=== PATIENT | male | born 2000 | race Hispanic/Latino ===

== ENCOUNTER 2021-11-27 17:42 | Emergency (ER) | payer OTHER ==
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
[2021-11-27 21:41] VITALS: TEMP 97.4; O2SAT 100
[2021-11-27 21:42] VITALS: BP 131/84
== END 2021-11-27 21:01 | disposition home or self-care (01) ==
LOC: ER 17:42
DX: R51.9 Headache, unspecified (principal); V49.49XA Driver injured in collision with other motor vehicles in traffic accident, initial encounter
CPT/HCPCS: 70450; 99283

== ENCOUNTER 2023-09-12 13:21 | Observation (INO) | payer SELFPAY ==
[2023-09-12 15:10] LABS: Absolute Lymphocytes (CBC) 2.7 K/uL (0.7-4.9); Hematocrit 40.1 % (39.6-49.0); Lymphocytes % 19.5 % (15.3-44.8); MCV 83.1 fL (80-100); MPV 8.4 fL (7.6-11.3); Platelets 315 thou/uL (152-406); RBC Red Blood Cell Count 4.83 M/uL (4.33-5.43)
[2023-09-12 15:41] LABS: Albumin 3.4 g/dL (3.4-5.0); Bilirubin Total 0.5 mg/dL (0.2-1.0); Potassium 3.8 mEq/L (3.5-5.1); Protein, Total 7.6 g/dL (6.4-8.2)
--- NOTE | 2023-09-12 16:27 | RAD REPORT ---
EXAM DESCRIPTION: US - Extremity Nonvascular Limited - 09/12/2023 3:56 pm CLINICAL HISTORY: Neck mass COMPARISON: None FINDINGS: Patient has a palpable mass posterior right 2.6 x 1.6 x 1.7 centimeter heterogeneous mass is present posterior right neck. It contains mild vascu larity. It contains cystic and solid appearing elements. IMPRESSION: 2.6 centimeter heterogeneous mass posterior right neck has a nonspecific appearance. It may represent an infected or a neoplastic lymph node. A complex cystic lesion is a another considerat ion
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
--- NOTE | 2023-09-12 17:10 | ER ---
Nurse's Notes [facility] Name: Russell Blake Jr Age: 22 yrs Sex: Male : 2000 Arrival Date: 09/12/2023 Time: 13:21 Bed 19 Private MD: Diagnosis: Lymph node mass versus infected lymph node Presentation: 09/12 13:43 Chief complaint: Neck pain x months. Denies numbness/tingling/fever. Coronavirus hb screen: At this time, the client does not indicate any symptoms associated with coronavirus-19. Ebola Screen: No symptoms or risks identified at this time. Initial Sepsis Screen: Does the patient meet any 2 criteria? No. Patient's initial sepsis screen is negative. Does the patient have a suspected source of infection? No. Patient's initial sepsis screen is negative. Risk Assessment: Do you want to hurt yourself or someone else? Patient reports no desire to harm self or others. Onset of symptoms was January 2023. 13:43 Method Of Arrival: Ambulatory hb 13:43 Acuity: JOSLYN 3 hb Historical: - Allergies: 19:18 No Known Allergies; nj1 - PMHx: 19:18 None; nj1 - PSHx: 13:43 Appendectomy; hb - Immunization history:: Adult Immunizations up to date. - Social history:: Smoking status: Patient denies any tobacco usage or history of. - Family history:: not pertinent. Screenin:05 [facility] ED Fall Risk Assessment (Adult) Score/Fall Risk Level 0 - 2 = Low Risk nj1 Oriented to surroundings, Maintained a safe environment, Hourly rounding (assess needs \T\ fall precautionary measures) done. Abuse screen: Denies threats or abuse. Denies injuries from another. Nutritional screening: No deficits noted. Tuberculosis screening: No symptoms or risk factors identified. Assessment: 17:04 General: Appears in no apparent distress. comfortable, Behavior is calm, cooperative, nj1 appropriate for age. Pain: Complains of pain in base of the skull Pain currently is 7 out of 10 on a pain scale. Neuro: Level of Consciousness is awake, alert, obeys commands, Oriented to person, place, time, situation. Cardiovascular: Patient's skin is warm and dry. Respiratory: Airway is patent Respiratory effort is even, unlabored. 18:45 Reassessment: Patient appears in no apparent distress at this time. Patient and/or nj1 family updated on plan of care and expected duration. Pain level reassessed. Patient is alert, oriented x 3, equal unlabored respirations, skin warm/dry/pink. Vital Signs: 13:43 BP 159 / 71; Pulse 102; Resp 18; Temp 98.5; Pulse Ox 98% on R/A; Weight 181.44 kg; hb Height 5 ft. 7 in. ; Pain 7/10; 17:04 BP 170 / 91; Pulse 96; Resp 19; Pulse Ox 100% ; Pain 7/10; nj1 18:45 BP 166 / 93; Pulse 93; Resp 18; Temp 98.8(O); Pulse Ox 97% on R/A; Pain 7/10; nj1 13:43 Body Mass Index 62.65 (181.44 kg, 170.18 cm) hb 13:43 Pain Scale: Adult hb 17:04 Pain Scale: Adult nj1 18:45 Pain Scale: Adult [facility] ED Course: 13:24 Patient arrived in ED. im 13:31 Evaristo Haq MD is Attending Physician. rt 13:43 Arm band placed on. hb 13:45 Triage completed. hb 14:30 Maribel Garza, ELIF is Primary Nurse. nj1 15:00 CMP Sent. nj1 15:00 CBC with Diff Sent. nj1 15:01 Inserted saline lock: 22 gauge in right forearm, using aseptic technique. Blood bc6 collected. 15:58 Extremity Nonvascular Limited In Process Unspecified. EDMS 17:05 Patient has correct armband on for positive identification. Bed in low position. Call nj1 light in reach. Adult w/ patient. Provided Education on: call light, fall precautions. 17:09 Kieran Butt MD is Hospitalizing Provider. rt 17:41 Inserted saline lock: 22 gauge in right forearm, using aseptic technique. Blood sm8 collected. 20:39 No provider procedures requiring assistance completed. Patient admitted, IV remains in pf1 place. Administered Medications: 18:45 Drug: vancoMYCIN IVPB 1 grams IVPB once over 2 hrs Route: IVPB; Infused Over: 2 hrs; nj Site: right forearm; Medication: 20:39 VIS not applicable for this client. pf1 Outcome: 17:09 Decision to Hospitalize by Provider. rt 20:16 Admitted to Med/surg accompanied by tech, via wheelchair, room 217, Report called to pf1 ELIF Goins 20:16 Condition: stable 20:16 Instructed on the need for admit, Demonstrated understanding of instructions, 20:39 Patient left the ED. pf1 Signatures: Dispatcher [employer] EDMarissa Bowden RN RN Evaristo Haq MD MD rt Carla Goodrich RN RN pf1 Trisha Feldman 6 Maribel Garza RN RN hi1 Cecile Benavidez Scarlett 8 Corrections: (The following items were deleted from the chart) 46 13:43 Chief complaint: Neck pain x 2 weeks. Denies numbness/tingling/fever. hb hb 13:46 13:43 Onset of symptoms was August 2023 hb
--- NOTE | 2023-09-12 17:38 | P.HP ---
Certification for Inpatient Patient admitted to: Observation With expected LOS: <2 Midnights Patient will require the following post-hospital care: None Practitioner: I am a practitioner with admitting privileges, knowledge of patient current condition, hospital course, and medical plan of care. Services: Services provided to patient in accordance with Admission requirements found in Title 42 Section 412.3 of the Code of Federal Regulations Patient History Date of Service: 09/12/23 Reason for admission: Neck mass History of Present Illness: 22-year-old male who is otherwise healthy presents to the emergency department chief complaint of right posterior neck mass. He first noticed the mass in February, he remained stable until about a week ago and began enlarging and becoming tender/painful. He was evaluated in the emergency department his labs were significant for white blood cell 13.6 glucose of 250. Unable to obtain CT given body habitus/weight limits for CT machine. Ultrasound was obtained Which revealed a 2.6 cm heterogenous mass posterior right neck has a nonspecific appearance. It may represent an infected or neoplastic lymph node. A complex cystic lesion is another consideration. ED physician spoke with general surgery who will evaluate patient, perhaps perform a biopsy. - Past Medical/Surgical History -: None -: Appendectomy Psychosocial/ Personal History: Lives at home with his , works as a data communications technician - Family History Mother -: Diabetes - Social History Smoking Status: Never smoker Alcohol use: No CD- Drugs: No Caffeine use: Yes Place of Residence: Home Review of Systems 10-point ROS is otherwise unremarkable Integumentary: Other (Soft tissue mass, neck tenderness posterior right neck) Physical Examination - Physical Exam General: Alert, In no apparent distress, Oriented x3, Obese HEENT: Atraumatic, PERRLA, Mucous membr. moist/pink, EOMI, Sclerae nonicteric Neck: Supple, 2+ carotid pulse no bruit, No LAD, Without JVD or thyroid abnormality Respiratory: Clear to auscultation bilaterally, Normal air movement Cardiovascular: Regular rate/rhythm, Normal S1 S2 Gastrointestinal: Normal bowel sounds, No tenderness Musculoskeletal: No tenderness Integumentary: Other (Right posterior lateral neck mass with erythema, tenderness) Neurological: Normal gait, Normal speech, Normal strength at 5/5 x4 extr, Normal tone, Normal affect Lymphatics: No axilla or inguinal lymphadenopathy - Studies Laboratory Data (last 24 hrs) 09/12/23 09/12/23 14:58 14:58 WBC 13.60 H Hgb 13.2 L Hct 40.1 Plt Count 315 Sodium 136 Potassium 3.8 BUN 14 Creatinine 0.85 Glucose 253 H Total Bilirubin 0.5 AST 13 L ALT 30 Alkaline Phosphatase 83 Assessment and Plan - Plan Assessment: 2.6 cm posterior lateral neck mass Hyperglycemia Plan: 2.6 cm posterior lateral neck mass Continue antibiotics in case of infectious component N.p.o. after midnight, general surgery consult anticipation of possible biopsy/potentially I&D Blood cultures and lactate ordered and pending no confirmed infection at this time. Hyperglycemia No known history of diabetes, blood sugar is elevated at around 250 Obtain A1c, mild sliding scale insulin DVT PPX: SCD Code status: Full Discharge Plan: Home Plan to discharge in: 24 Hours - Advance Directives Does patient have a Living Will: No Does patient have a Durable POA for Healthcare: No - Code Status/Comfort Care Code Status Assessed: Yes (Full code) Critical Care: No Time Spent Managing Pts Care (In Minutes): 55
[2023-09-12] MEDS ORDERED: NA CHLORIDE 0.9% 250 ML ONE ×3 (18:40→22:45)
[2023-09-12] MEDS ORDERED: VANCOMYCIN 1 GM/VIAL ONE ×2 (18:40→18:51)
[2023-09-12 21:29] VITALS: BMI 67.2
[2023-09-12] MEDS ORDERED: D50W 25 GM/50 ML SYRINGE IV PRN (21:30)
[2023-09-12] MEDS ORDERED: ONDANSETRON 4 MG/2 ML VIAL IV PRN (21:30)
[2023-09-12] MEDS: INSULIN REGULAR (HUMAN) 100 UNIT/ML SQ SCH (21:30)
[2023-09-12] MEDS ORDERED: ACETAMINOPHEN 500 MG TAB PO PRN (21:30)
[2023-09-12] MEDS ORDERED: GLUCAGON 1 MG/VIAL IM PRN (21:30)
[2023-09-12] MEDS ORDERED: D10W 125 ML IV PRN (21:39)
[2023-09-12] MEDS ORDERED: VANCOMYCIN 1 GM in NA CHLORIDE 0.9% 250 ML IVPB ONE (22:00)
[2023-09-12] MEDS: NA CHLORIDE 0.9% 1,000 ML IV SCH (22:11)
[2023-09-12] MEDS: HYDROCODONE/APAP 7.5/325 MG TAB PO PRN (22:36)
[2023-09-13 04:51] LABS: Absolute Lymphocytes (CBC) 3.7 K/uL (0.7-4.9); Hematocrit 38.9 % (39.6-49.0); Lymphocytes % 29.2 % (15.3-44.8); MCV 82.7 fL (80-100); MPV 8.5 fL (7.6-11.3); Platelets 309 thou/uL (152-406)
[2023-09-13 05:10] LABS: Potassium 3.8 mEq/L (3.5-5.1)
[2023-09-13] MEDS ORDERED: KCL 20 MEQ/100 mL IVPB 20 MEQ/100 ML BAG IV SCH (06:00)
[2023-09-13] MEDS: INSULIN REGULAR (HUMAN) 100 UNIT/ML SQ SCH ×3 (07:30→16:30)
[2023-09-13] MEDS: HYDROCODONE/APAP 7.5/325 MG TAB PO PRN ×2 (08:20→17:13)
[2023-09-13] MEDS: NA CHLORIDE 0.9% 1,000 ML IV SCH (08:21)
[2023-09-13] MEDS ORDERED: VANCOMYCIN 2 GM in NA CHLORIDE 0.9% 500 ML IVPB SCH (09:00)
[2023-09-13] MEDS: VANCOMYCIN 1 GM in NA CHLORIDE 0.9% 250 ML IV SCH ×2 (09:00→17:13)
--- NOTE | 2023-09-13 09:19 | RAD REPORT ---
EXAM DESCRIPTION: RAD - Chest Single View - 09/13/2023 9:12 am CLINICAL HISTORY: Eval for lymphadenopathy COMPARISON: Extremity Nonvascular Limited dated 09/12/2023 FINDINGS: Lines: None. Lungs: Low lung volumes accentuates the pulmonary vasculature. Pleural: No significant pleural effusions or pneumothorax. Cardiac: Cardiomegaly. Mediastinum: Within normal limits. Bones: No acute fractures. Other: None IMPRESSION: No acute cardiopulmonary disease.
[2023-09-13] MEDS ORDERED: INFLUENZA VACCINE (for 6+ mo) 0.5 ML DOSE IMVAC ONE (11:00)
[2023-09-13] MEDS ORDERED: LIDOCAINE HCL/EPINEPHRINE 20 ML MDV ONE (15:48)
--- NOTE | 2023-09-13 15:49 | P.PN ---
Subjective Date of Service: 09/13/23 Chief Complaint: Neck mass Subjective: No new changes Review of Systems 10-point ROS is otherwise unremarkable Musculoskeletal: Other (Neck pain) Physical Examination - Vital Signs Temperature: 97.3 F Blood Pressure: 108/53 Pulse: 80 Respirations: 16 Pulse Ox (%): 96 - Physical Exam General: Alert, In no apparent distress, Oriented x3 HEENT: Atraumatic, PERRLA, EOMI Neck: Supple, JVD not distended Respiratory: Clear to auscultation bilaterally, Normal air movement Cardiovascular: Regular rate/rhythm, Normal S1 S2 Gastrointestinal: Normal bowel sounds, No tenderness Musculoskeletal: No tenderness Integumentary: Other (Palpable mass right posterior neck with erythema overlying) Neurological: Normal speech, Normal tone, Normal affect - Studies Medications List Reviewed: Yes Assessment And Plan - Plan Assessment: 2.6 cm posterior lateral neck mass Hyperglycemia Plan: 2.6 cm posterior lateral neck mass Continue antibiotics in case of infectious component Going to OR today for evaluation/possible I&D Blood cultures pending, lactate WNL CRP mildly elevated Hyperglycemia A1c 7, discussed findings with patient SSI, will need follow up with PCP at [place] DVT PPX: SCD Code status: Full Discharge Plan: Home Plan to discharge in: 24 Hours - Code Status/Comfort Care Code Status Assessed: Yes (Full) Critical Care: No Time Spent Managing PTS Care (In Minutes): 20
[2023-09-13] MEDS ORDERED: FENTANYL CITR 100 MCG/2 ML ONE (16:05)
[2023-09-13] MEDS ORDERED: MIDAZOLAM HCL 2 MG/2 ML INJ ONE (16:05)
[2023-09-13] MEDS ORDERED: propofoL 200 MG/20 ML VIAL IV ONE (16:05)
--- NOTE | 2023-09-13 16:07 | P.CNS ---
Date of Consult: 09/13/23 PC: I was asked see this patient in regards to a mass on the right side of his neck HPC: Patient presented the emergency room with pain and discomfort in the right side of his neck as well as feeling a lump. It was worked up and was found to have a cystic mass. PSHx: Negative PMHx: Morbid obesity, borderline diabetes, sleep apnea Social Hx: No known allergies Sys R: No cough, wheeze, shortness of breath. No chest pain or palpitations. Denies any urinary complaints O/E: Awake alert vital signs are stable HEENT: On the right side of the neck posteriorly right along the skin crease there is a mass that measures about 1-1/2 cm in size. No drainage at the moment. Chest: Negative Abd: Morbidly obese Anderson: Intact Impression: Mass right-sided neck possible abscess Plan: I will taken to the operating room for incision, drainage, sharp debridement of this mass on the right side the neck. The risks of this procedur e have been discussed. The possibility of bleeding, infection, need for further surgeries and procedures was described. He understands and wants us to proceed.
[2023-09-13 16:35] VITALS: TEMP 97.6
[2023-09-13 16:45] VITALS: BP 125/60; O2SAT 96
--- NOTE | 2023-09-13 17:36 | P.DS ---
Admission Date: 09/12/23 Discharge Date: 09/13/23 Disposition: ROUTINE DISCHARGE Discharge Condition: GOOD Reason for Admission: Neck mass Consultations: General surgery Procedures: Incision and drainage of infected sebaceous cyst 09/13/2023 Brief History of Present Illness: 22-year-old male who is otherwise healthy presents to the emergency department chief complaint of right posterior neck mass. He first noticed the mass in February, he remained stable until about a week ago and began enlarging and becoming tender/painful. He was evaluated in the emergency department his labs were significant for white blood cell 13.6 glucose of 250. Unable to obtain CT given body habitus/weight limits for CT machine. Ultrasound was obtained Which revealed a 2.6 cm heterogenous mass posterior right neck has a nonspecific appearance. It may represent an infected or neoplastic lymph node. A complex cystic lesion is another consideration. ED physician spoke with general surgery who will evaluate patient, perhaps perform a biopsy. Hospital Course: Patient was admitted to the hospital for right posterior neck mass. During his hospitalization he was found to be hyperglycemic, an A1c was checked and it was 7. On 09/05/2023 he had an incision and drainage performed by general surgery and it was found that he had an infected sebaceous cyst present to the posterior right neck. He was cleared for discharge from general surgery to follow-up in the office. In regards to the elevated A1c level and hyperglycemia he was presc ribed metformin 500 mg p.o. twice daily and instructed to follow-up with his primary care doctor in 1 week. Also prescribed Bactrim DS 1 tablet by mouth twice daily for infected sebaceous cyst. Vital Signs/Physical Exam: Temp Pulse Resp BP Pulse Ox 97.6 F 80 20 125/60 96 09/13/23 16:42 09/13/23 16:42 09/13/23 16:42 09/13/23 16:42 09/13/23 15:49 General: Alert, In no apparent distress, Oriented x3, Obese HEENT: Atraumatic, PERRLA, EOMI Neck: Supple, JVD not distended Respiratory: Clear to auscultation bilaterally, Normal air movement Cardiovascular: Regular rate/rhythm, Normal S1 S2 Gastrointestinal: Normal bowel sounds, No tenderness Musculoskeletal: No tenderness Integumentary: No rashes Neurological: Normal speech, Normal tone, Normal affect Laboratory Data at Discharge: WBC 12.70 thou/uL (4.3-10.9) H 09/13/23 04:15 Hgb 12.7 g/dL (13.6-17.9) L 09/13/23 04:15 Hct 38.9 % (39.6-49.0) L 09/13/23 04:15 Plt Count 309 thou/uL (152-406) 09/13/23 04:15 Sodium 136 mEq/L (136-145) 09/13/23 04:15 Potassium 3.8 mEq/L (3.5-5.1) 09/13/23 04:15 BUN 13 mg/dL (7-18) 09/13/23 04:15 Creatinine 0.75 mg/dL (0.70-1.30) 09/13/23 04:15 Glucose 162 mg/dL (74-106) H 09/13/23 04:15 Total Bilirubin 0.5 mg/dL (0.2-1.0) 09/12/23 14:58 AST 13 U/L (15-37) L 09/12/23 14:58 ALT 30 U/L (16-61) 09/12/23 14:58 Alkaline Phosphatase 83 U/L (45-117) 09/12/23 14:58 Physician Discharge Instructions: PROBLEM: (list out Acute Problems for the Current visit) GOAL: Clear understanding of disease process INSTRUCTIONS: PT TO CALL DR. BASHIR OFFICE FRIDAY FOR APPOINTMENT ON Friday09/17/23 PT CAN SHOWER AND WASH WITH SOAP AND WATER AND COVER WITH DRY DRESSING. Diet: TOLERATED Patient was admitted to the hospital for right posterior neck mass. During his hospitalization he was found to be hyperglycemic, an A1c was checked and it was 7. On 09/05/2023 he had an incision and drainage performed by general surgery and it was found that he had an infected sebaceous cyst present to the posterior right neck. He was cleared for discharge from general surgery to follow-up in the office. In regards to the elevated A1c level and hyperglycemia he was prescribed metformin 500 mg p.o. twice daily and instructed to follow-up with his primary care doctor in 1 week. Also prescribed Bactrim DS 1 tablet by mouth twice daily for infected sebaceous cyst. Diet: ADA Activity: Ad ignacio Followup: NONE,NONE [Primary Care Provider] - Time spent managing pt's care (in minutes): 30
== END 2023-09-13 19:09 | disposition home or self-care (01) ==
LOC: ER 13:21 → ERHOLD 17:28 → 2ND 19:17
PROVIDERS: ADMIT Hospitalist; ATTEND Hospitalist
PROC: 0H94XZX Drainage of Neck Skin, External Approach, Diagnostic (ICD-10-PCS; principal; 2023-09-13 15:15)
DX: L72.3 Sebaceous cyst (principal); R73.9 Hyperglycemia, unspecified
CPT/HCPCS: 36415; 71045; 76882; 80048; 80053; 82947; 83036; 83605; 85025; 86140; 87040; 96374; 99285; G0378; J2250; J2704; J3010; J3480; J7030; J7040; J7050

== ENCOUNTER → 2023-11-30 | Emergency (ER) | payer SELFPAY ==
[~2023-11-30] MED LIST: ASPIRIN 81 MG CHEWABLE TABLET ONE; AZITHROMYCIN 250 MG TAB ONE; NA CHLORIDE 0.9% 1,000 ML ONE
--- NOTE | 2023-11-30 15:33 | RAD REPORT ---
EXAM DESCRIPTION: RAD - Chest Single View - 11/30/2023 3:25 pm CLINICAL HISTORY: DYSPNEA Chest pain. COMPARISON: <Comparisons> FINDINGS: Portable technique limits examination quality. The lungs are grossly clear. The heart is normal in size. No displaced fractures. IMPRESSION: No acute intrathoracic process suspected.
[2023-11-30 15:55] LABS: Absolute Lymphocytes (CBC) 3.1 K/uL (0.7-4.9); Hematocrit 42.1 % (39.6-49.0); Lymphocytes % 25.2 % (15.3-44.8); MCV 81.6 fL (80-100); MPV 8.1 fL (7.6-11.3); Platelets 349 thou/uL (152-406); RBC Red Blood Cell Count 5.15 M/uL (4.33-5.43)
[2023-11-30 15:55] LABS: Urine Bilirubin NEGATIVE (Negative); Urine Blood Negative (Negative); Urine Clarity Clear (Clear); Urine Color Light-Yellow (Yellow); Urine Glucose NEGATIVE (Negative); Urine Protein NEGATIVE (Negative); Urine Urobilinogen Normal (Normal)
[2023-11-30 16:01] LABS: SARS-CoV-2 Antigen Rapid Res Negative (Negative)
[2023-11-30 16:04] LABS: Protime INR 1.21
[2023-11-30 16:16] LABS: Albumin 3.4 g/dL (3.4-5.0); Bilirubin Direct 0.1 mg/dL (0-0.2); Bilirubin Indirect, Calculated 0.3 mg/dL (0.2-0.8); Bilirubin Total 0.4 mg/dL (0.2-1.0); Potassium 3.5 mEq/L (3.5-5.1); Protein, Total 7.9 g/dL (6.4-8.2); Troponin High Sensitivity 5.3 pg/mL (<58.9)
--- NOTE | 2023-11-30 16:35 | RAD REPORT ---
EXAM DESCRIPTION: US - Extrem Venous W Compress Og - 11/30/2023 4:30 pm CLINICAL HISTORY: PAIN Bilateral leg edema and swelling. COMPARISON: <Comparisons> TECHNIQUE: Real-time sonographic interrogation of the left and right lower extremity deep venous sys tems was performed. FINDINGS: Normal compressibility, flow augmentation, phasic flow and spontaneous flow is identified in both the left and right lower extremity deep venous systems. IMPRESSION: No sonographic evidence of left or right lower extremity deep venous thrombosis.
--- NOTE | 2023-11-30 17:35 | ER ---
Nurse's Notes [facility] Name: Russell Blake Jr Age: 22 yrs Sex: Male : 2000 Arrival Date: 11/30/2023 Time: 14:54 Bed 4 Private MD: Diagnosis: Dyspnea;Acute upper respiratory infection, unspecified;Obesity, unspecified;Obesity due to excess calories;Morbid (severe) obesity with alveolar hypoventilation Presentation: 11/30 15:04 Chief complaint: Patient states: Sore throat and shortness of breath onset last week. cm10 Coronavirus screen: Vaccine status: Patient reports receiving the 2nd dose of the covid vaccine. Client denies travel out of the [place] in the last 14 days. Ebola Screen: Patient denies travel to an Ebola-affected area in the 21 days before illness onset. No symptoms or risks identified at this time. Initial Sepsis Screen: Does the patient meet any 2 criteria? No. Patient's initial sepsis screen is negative. Does the patient have a suspected source of infection? No. Patient's initial sepsis screen is negative. Risk Assessment: Do you want to hurt yourself or someone else? Patient reports no desire to harm self or others. Onset of symptoms was November 30, 2023. 15:04 Method Of Arrival: Ambulatory cm10 15:04 Acuity: JOSLYN 3 cm10 Triage Assessment: 15:06 General: Appears in no apparent distress. comfortable, Behavior is calm, cooperative. cm10 Pain: Complains of pain in Throat. EENT: Throat is reddened Reports pain in Throat. Neuro: No deficits noted. Level of Consciousness is awake, alert, Oriented to person, place, time, situation. Cardiovascular: No deficits noted. Reports shortness of breath, Denies chest pain, Patient's skin is warm and dry. Respiratory: Reports shortness of breath since Last week Airway is patent Respiratory effort is even, unlabored, Respiratory pattern is regular, symmetrical, Onset: The symptoms/episode began/occurred 1 week ago, the patient has mild shortness of breath. GI: No deficits noted. No signs and/or symptoms were reported involving the gastrointestinal system. : No deficits noted. No signs and/or symptoms were reported regarding the genitourinary system. Derm: No deficits noted. No signs and/or symptoms reported regarding the dermatologic system. Skin is intact, Skin is pink, warm \T\ dry. Musculoskeletal: No deficits noted. Range of motion: intact in all extremities. Historical: - Allergies: 15:06 No Known Allergies; cm10 - PMHx: 15:06 Diabetes mellitus; cm10 - PSHx: 15:06 Appendectomy; cm10 - Immunization history:: Adult Immunizations up to date. - Social history:: Smoking status: Patient denies any tobacco usage or history of. Screenin:42 [facility] ED Fall Risk Assessment (Adult) History of falling in the last 3 months, ld1 including since admission No falls in past 3 months (0 pts). Abuse screen: Denies threats or abuse. Denies injuries from another. Nutritional screening: No deficits noted. Tuberculosis screening: No symptoms or risk factors identified. Assessment: 15:42 General: Appears in no apparent distress. comfortable, Behavior is calm, cooperative, ld1 appropriate for age. Pain: Denies pain. Neuro: Level of Consciousness is awake, alert, obeys commands, Oriented to person, place, time, situation. Cardiovascular: Capillary refill < 3 seconds Patient's skin is warm and dry. Rhythm is sinus rhythm. Respiratory: Reports shortness of breath at rest on exertion Airway is patent Respiratory effort is even, unlabored, Breath sounds are clear bilaterally. GI: Abdomen is round obese. : No signs and/or symptoms were reported regarding the genitourinary system. EENT: No signs and/or symptoms were reported regarding the EENT system. Derm: No signs and/or symptoms reported regarding the dermatologic system. Musculoskeletal: No signs and/or symptoms reported regarding the musculoskeletal system. 17:33 Reassessment: No changes from previously documented assessment. Patient and/or family mb9 updated on plan of care and expected duration. Pain level reassessed. Patient is alert, oriented x 3, equal unlabored respirations, skin warm/dry/pink. Vital Signs: 15:04 BP 124 / 75; Pulse 85; Resp 18; Temp 97.3(TE); Pulse Ox 100% ; Weight 188.24 kg; Height cm10 5 ft. 8 in. ; Pain 5/10; 15:42 BP 123 / 71; Pulse 83; Resp 19; Pulse Ox 99% on R/A; ld1 16:53 BP 135 / 80; Pulse 78; Resp 18; Pulse Ox 99% on R/A; ld1 15:04 Body Mass Index 63.10 (188.24 kg, 172.72 cm) cm10 15:04 Pain Scale: Adult cm10 ED Course: 14:58 Patient arrived in ED. ts1 15:06 Triage completed. cm10 15:07 Arm band placed on Patient placed in an exam room, on a stretcher. cm10 15:12 Compa Garza MD is Attending Physician. yogi 15:26 Coco Rosa RN is Primary Nurse. ld1 15:27 XRAY Chest (1 view) In Process Unspecified. EDMS 15:41 Flu Sent. ld1 15:41 SARS RAPID Sent. ld1 15:41 Urinalysis w/ reflexes Sent. ld1 15:41 Lipase Sent. ld1 15:42 Patient has correct armband on for positive identification. Placed in gown. Bed in low ld1 position. Call light in reach. Side rails up X2. library monitor on. Pulse ox on. NIBP on. Door closed. Noise minimized. Warm blanket given. 15:42 No provider procedures requiring assistance completed. ld1 15:42 Missed attempt(s): 22 gauge in right hand. Bleeding controlled, band aid applied, mb4 catheter tip intact. 15:50 Initial lab(s) drawn, by me, sent to lab. Inserted saline lock: 22 gauge in left hand, mb4 using aseptic technique. Blood collected. 16:32 US Extremity Venous W Compression Og In Process Unspecified. EDMS 17:35 Vicente Walker MD is Referral Physician. yogi 17:41 IV discontinued, intact, bleeding controlled, No redness/swelling at site. Pressure mb9 dressing applied. Administered Medications: 15:51 Drug: NS 0.9% IV 1000 ml IV at 75 ml/hr continuous Route: IV; Rate: 75 ml/hr; Site: ld1 left forearm; 16:51 Drug: Aspirin PO Chewable Tablet 324 mg PO once; 81 mg tablets x 4 Route: PO; mb9 17:33 Follow up: Response: No adverse reaction mb9 16:51 Drug: AZITHromycin PO 500 mg PO once Route: PO; mb9 17:33 Follow up: Response: No adverse reaction mb9 Medication: 15:42 VIS not applicable for this client. ld1 Outcome: 17:35 Discharge ordered by . yogi 17:41 Discharged to home ambulatory, mb9 17:41 Condition: stable 17:41 Discharge instructions given to patient, Instructed on discharge instructions, follow up and referral plans. Demonstrated understanding of instructions, follow-up care, medications, Prescriptions given X 2, 17:41 Patient left the ED. mb9 Signatures: Dispatcher [employer] EDGA Compa Garza MD MD cha Baxter, Mackenzie mb4 Coco Rosa RN RN ld1 Lora Whittington RN RN mb9 Charlene Gibson PAS PAS ts1 Liliya Zayas RN RN cm10
--- NOTE | 2023-11-30 17:35 | EDPHYS ---
Physician Documentation [facility] Name: Russell Blake Jr Age: 22 yrs Sex: Male : 2000 Arrival Date: 11/30/2023 Time: 14:54 Bed 4 Private MD: ED Physician Compa Garza HPI: 11/30 16:46 This 22 yrs old Male presents to ER via Ambulatory with complaints of yogi Shortness Of Breath. 16:46 The patient has shortness of breath at rest, with light activity. Onset: The yogi symptoms/episode began/occurred 3 day(s) ago. Duration: The symptoms are intermittent, with no pattern. The patient's shortness of breath is aggravated by coughing. Associated signs and symptoms: Pertinent positives: non-productive cough, fever. Severity of symptoms: At their worst the symptoms were mild in the emergency department the symptoms are unchanged. The patient has experienced similar episodes in the past, a few times. Historical: - Allergies: 15:06 No Known Allergies; cm10 - PMHx: 15:06 Diabetes mellitus; cm10 - PSHx: 15:06 Appendectomy; cm10 - Immunization history:: Adult Immunizations up to date. - Social history:: Smoking status: Patient denies any tobacco usage or history of. ROS: 16:50 Constitutional: Negative for fever, chills, and weight loss, Eyes: Negative for injury, yogi pain, redness, and discharge, ENT: Negative for injury, pain, and discharge, Neck: Negative for injury, pain, and swelling, Cardiovascular: Negative for chest pain, palpitations, and edema, Abdomen/GI: Negative for abdominal pain, nausea, vomiting, diarrhea, and constipation, Back: Negative for injury and pain, : Negative for injury, bleeding, discharge, and swelling, MS/Extremity: Negative for injury and deformity, Skin: Negative for injury, rash, and discoloration, Neuro: Negative for headache, weakness, numbness, tingling, and seizure, Psych: Negative for depression, anxiety, suicide ideation, homicidal ideation, and hallucinations, Allergy/Immunology: Negative for hives, rash, and allergies, Endocrine: Negative for neck swelling, polydipsia, polyuria, polyphagia, and marked weight changes, Hematologic/Lymphatic: Negative for swollen nodes, abnormal bleeding, and unusual bruising, 16:50 Respiratory: Positive for cough, with no reported sputum, Exam: 16:50 Constitutional: This is a well developed, well nourished patient who is awake, alert, yogi and in no acute distress. Head/Face: Normocephalic, atraumatic. Eyes: Pupils equal round and reactive to light, extra-ocular motions intact. Lids and lashes normal. Conjunctiva and sclera are non-icteric and not injected. Cornea within normal limits. Periorbital areas with no swelling, redness, or edema. ENT: Nares patent. No nasal discharge, no septal abnormalities noted. Tympanic membranes are normal and external auditory canals are clear. Oropharynx with no redness, swelling, or masses, exudates, or evidence of obstruction, uvula midline. Mucous membranes moist. Neck: Trachea midline, no thyromegaly or masses palpated, and no cervical lymphadenopathy. Supple, full range of motion without nuchal rigidity, or vertebral point tenderness. No Meningismus. Chest/axilla: Normal chest wall appearance and motion. Nontender with no deformity. No lesions are appreciated. Cardiovascular: Regular rate and rhythm with a normal S1 and S2. No gallops, murmurs, or rubs. Normal PMI, no JVD. No pulse deficits. Respiratory: Lungs have equal breath sounds bilaterally, clear to auscultation and percussion. No rales, rhonchi or wheezes noted. No increased work of breathing, no retractions or nasal flaring. Abdomen/GI: Soft, non-tender, with normal bowel sounds. No distension or tympany. No guarding or rebound. No evidence of tenderness throughout. Back: No spinal tenderness. No costovertebral tenderness. Full range of motion. Male : Normal genitalia with no discharge or lesions. Skin: Warm, dry with normal turgor. Normal color with no rashes, no lesions, and no evidence of cellulitis. MS/ Extremity: Pulses equal, no cyanosis. Neurovascular intact. Full, normal range of motion. Neuro: Awake and alert, GCS 15, oriented to person, place, time, and situation. Cranial nerves II-XII grossly intact. Motor strength 5/5 in all extremities. Sensory grossly intact. Cerebellar exam normal. Normal gait. Psych: Awake, alert, with orientation to person, place and time. Behavior, mood, and affect are within normal limits. 16:50 ECG was reviewed by the Attending Physician. Vital Signs: 15:04 BP 124 / 75; Pulse 85; Resp 18; Temp 97.3(TE); Pulse Ox 100% ; Weight 188.24 kg; Height cm10 5 ft. 8 in. ; Pain 5/10; 15:42 BP 123 / 71; Pulse 83; Resp 19; Pulse Ox 99% on R/A; ld1 16:53 BP 135 / 80; Pulse 78; Resp 18; Pulse Ox 99% on R/A; ld1 15:04 Body Mass Index 63.10 (188.24 kg, 172.72 cm) cm10 15:04 Pain Scale: Adult cm10 MDM: 15:12 Patient medically screened. [facility] 16:51 Differential diagnosis: asthma, Bronchitis CHF exacerbation, viral Infection, bacterial yogi infection, pneumonia Myocardial Infarction pneumonia, pulmonary edema, Pulmonary Embolism reactive airway disease, Unstable Angina. Antibiotic administration: The patient is discharged and will get outpatient antibiotics, Zithromax. Differential Diagnosis: Obstructed Airway Bronchitis Influenza Upper Respiratory Infection Sinusitis Pharyngitis Asthma Exacerbation Viral Syndrome Pneumonia. Immunization status:. Data reviewed: vital signs, nurses notes, lab test result(s), EKG, radiologic studies, plain films. Consideration of Admission/Observation Escalation of care including admission/observation considered. Independent interpretation of the following test(s) in the Emergency Department EKG: See my EKG interpretation above. 11/30 15:14 Order name: Basic Metabolic Panel; Complete Time: 16:43 [facility] 11/30 15:14 Order name: CBC with Diff 11/30 15:14 Order name: LFT's; Complete Time: 16:43 [facility] 11/30 15:14 Order name: Magnesium; Complete Time: 16:43 [facility] 11/30 15:14 Order name: NT PRO-BNP; Complete Time: 16:43 [facility] 11/30 15:14 Order name: PT-INR; Complete Time: 16:43 [facility] 11/30 15:14 Order name: Troponin HS; Complete Time: 16:43 [facility] 11/30 15:14 Order name: Lipase; Complete Time: 16:43 [facility] 11/30 15:14 Order name: Urinalysis w/ reflexes; Complete Time: 16:43 [facility] 11/30 15:14 Order name: SARS RAPID; Complete Time: 16:43 [facility] 11/30 15:14 Order name: Flu; Complete Time: 16:43 yogi 11/30 15:47 Order name: D-Dimer; Complete Time: 16:58 [facility] 11/30 15:14 Order name: XRAY Chest (1 view); Complete Time: 16:43 yogi 11/30 15:47 Order name: US Extremity Venous W Compression Og; Complete Time: 16:43 yogi 11/30 15:14 Order name: EKG; Complete Time: 15:14 [facility] 11/30 15:14 Order name: Cardiac monitoring; Complete Time: 15:41 yogi 11/30 15:14 Order name: EKG - Nurse/Tech; Complete Time: 15:41 [facility] 11/30 15:14 Order name: IV Saline Lock; Complete Time: 15:52 [facility] 11/30 15:14 Order name: Labs collected and sent; Complete Time: 15:52 [facility] 11/30 15:14 Order name: O2 Per Protocol; Complete Time: 15:27 [facility] 11/30 15:14 Order name: O2 Sat Monitoring; Complete Time: 15:27 [facility] EC:50 Rate is 81 beats/min. Rhythm is regular. QRS [place] is Normal. [place] interval is normal. QRS yogi interval is normal. QT interval is normal. No Q waves. T waves are Normal. No ST changes noted. Clinical impression: Normal ECG and No evidence of ischemia. Interpreted by me. Reviewed by me. Administered Medications: 15:51 Drug: NS 0.9% IV 1000 ml IV at 75 ml/hr continuous Route: IV; Rate: 75 ml/hr; Site: ld1 left forearm; 16:51 Drug: Aspirin PO Chewable Tablet 324 mg PO once; 81 mg tablets x 4 Route: PO; mb9 17:33 Follow up: Response: No adverse reaction mb9 16:51 Drug: AZITHromycin PO 500 mg PO once Route: PO; mb9 17:33 Follow up: Response: No adverse reaction mb9 Disposition Summary: 11/30/23 17:35 Discharge Ordered Notes: Location: Home yogi Problem: new yogi Symptoms: have improved yogi Condition: Stable yogi Diagnosis - Dyspnea yogi - Acute upper respiratory infection, unspecified yogi - Obesity, unspecified yogi - Obesity due to excess calories yogi - 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 Followup: yogi - With: Private Physician - When: 2 - 3 days - Reason: Recheck today's complaints, Continuance of care, Re-evaluation by your physician Followup: yogi - With: Vicente Walker MD - When: 2 - 3 days - Reason: Recheck today's complaints, Re-evaluation by your physician Discharge Instructions: - Discharge Summary Sheet yogi - Obesity, Adult yogi - Upper Respiratory Infection, Adult yogi - Cool Mist Vaporizer yogi - Upper Respiratory Infection, Adult, [id number] yogi - Cough, Adult, [id number] yogi - Aspirin and Your Heart [facility] - Cough, Adult [facility] Forms: - Medication Reconciliation Form [facility] - Thank You Letter yogi - Antibiotic Education yogi - Prescription Opioid Use yogi - Patient Portal Instructions yogi - Leadership Thank You Letter yogi - Work release form eb Prescriptions: - albuterol sulfate 90 mcg/actuation Inhalation HFA Aerosol Inhaler - inhale 2 puff INHALATION route every 6 hours until breathing returns to target [facility] peak flow/parameters; 1 unit; Refills: 0, Product Selection Permitted - Zithromax 500 mg Oral tablet - take 1 tablet ORAL route once daily for 5 days; 5 tablet; Refills: 0, Product [facility] Selection Permitted Signatures: Dispatcher [employer] EDCompa Rogers MD MD cha Sims, Lauren RN RN ld1 Lora Whittington RN RN mb9 Liliya Zayas RN RN cm10 Corrections: (The following items were deleted from the chart) 15:59 15:14 Chest For PE Angio+CT.RAD.BRZ ordered. [facility] EDMS
[2023-11-30 18:06] VITALS: BP 135/80; TEMP 97.3; O2SAT 99
--- NOTE | 2023-12-01 16:58 | EKG ---
Test Date: 2023-11-30 Test Time: 15:35:15 Paper Rewinder Operator: CARLOS MEASUREMENT RESULTS: Intervals: Rate: 81 LA: 184 QRSD: 86 QT: 358 QTc: 415 [place]: P: 49 LA: 184 QRS: -16 T: 42 INTERPRETIVE STATEMENTS: Normal sinus rhythm Normal ECG No previous ECG available for comparison Electronically Signed On 12-01-23 16:55:37 WARPING MACHINE OPERATOR by Rinku Feng
== END ==
LOC: ER 14:54
DX: J06.9 Acute upper respiratory infection, unspecified (principal); E66.2 Morbid (severe) obesity with alveolar hypoventilation; Z68.44 Body mass index [BMI] 60.0-69.9, adult; E66.09 Other obesity due to excess calories; Z11.52 Encounter for screening for COVID-19
CPT/HCPCS: 36415; 71045; 80048; 80076; 81003; 83690; 83735; 83880; 84484; 85025; 85379; 85610; 87804; 87811; 93005; 93970; 99285; J7030

== ENCOUNTER 2024-02-26 08:40 | Inpatient (IN) | payer OTHER, SELFPAY ==
[2024-02-26] MEDS ORDERED: MORPHINE 4 MG/ML SYR ONE (09:59)
[2024-02-26] MEDS ORDERED: ONDANSETRON 4 MG/2 ML VIAL ONE ×2 (09:59→15:09)
[2024-02-26] MEDS ORDERED: NA CHLORIDE 0.9% 500 ML ONE (09:59)
[2024-02-26] MEDS ORDERED: NA CHLORIDE 0.9% 1,000 ML ONE (09:59)
[2024-02-26] MEDS ORDERED: CLINDAMYCIN 900MG/D5W 900 MG/50 ML IVPB IV ONE (10:00)
[2024-02-26] MEDS ORDERED: NA CHLORIDE 0.9% 100 ML ONE (10:00)
--- NOTE | 2024-02-26 10:15 | ER ---
Nurse's Notes [facility] Name: Russell Blake Jr Age: 23 yrs Sex: Male : 2000 Arrival Date: 02/26/2024 Time: 08:40 Bed 6 Private MD: Diagnosis: Cutaneous abscess of neck;Obesity, unspecified;Type 2 diabetes mellitus with hyperglycemia;Elevated white blood cell count Presentation: 02/25 08:45 Chief complaint: Patient states: possible abscess to back of neck since Friday. iw Coronavirus screen: At this time, the client does not indicate any symptoms associated with coronavirus-19. Ebola Screen: Patient negative for fever greater than or equal to 101.5 degrees Fahrenheit, and additional compatible Ebola Virus Disease symptoms Patient denies exposure to infectious person. Patient denies travel to an Ebola-affected area in the 21 days before illness onset. No symptoms or risks identified at this time. Initial Sepsis Screen: Does the patient meet any 2 criteria? No. Patient's initial sepsis screen is negative. Does the patient have a suspected source of infection? No. Patient's initial sepsis screen is negative. Risk Assessment: Do you want to hurt yourself or someone else? Patient reports no desire to harm self or others. Onset of symptoms was February 24, 2024. 08:45 Method Of Arrival: Ambulatory iw 08:45 Acuity: JOSLYN 4 iw 10:01 Acuity: JOSLYN 3 iw Historical: - Allergies: 08:47 No Known Allergies; iw - PMHx: 08:47 diabetes mellitus; iw - PSHx: 08:47 Appendectomy; iw - Immunization history:: Adult Immunizations not up to date. - Infectious Disease History:: Denies. - Social history:: Smoking status: Patient denies any tobacco usage or history of. - Family history:: not pertinent. Screenin:53 [facility] ED Fall Risk Assessment (Adult) History of falling in the last 3 months, ll1 including since admission No falls in past 3 months (0 pts) Confusion or Disorientation No (0 pts) Intoxicated or Sedated No (0 pts) Impaired Gait No (0 pts) Mobility Assist Device Used No (0 pt) Altered Elimination No (0 pt) Score/Fall Risk Level 0 - 2 = Low Risk Maintained a safe environment, Hourly rounding (assess needs \T\ fall precautionary measures) done. Abuse screen: Denies threats or abuse. Nutritional screening: No deficits noted. Tuberculosis screening: No symptoms or risk factors identified. Assessment: 08:51 General: Appears uncomfortable, Behavior is calm, cooperative, appropriate for age. ll1 Pain: Complains of pain in posterior neck Pain currently is 8 out of 10 on a pain scale. Quality of pain is described as aching. Neuro: Level of Consciousness is awake, alert, obeys commands, Reports neck pain. Derm: Reports possible abscess to posterior neck for 1-2 weeks, worse for the past 3 days. No fever but feels hot. No drainage. 10:00 General: Appears in no apparent distress. Behavior is calm, cooperative. Pain: mb9 Complains of pain in posterior cervical area. Neuro: Dalal Agitation-Sedation Scale (RASS): 0 - Alert and Calm Level of Consciousness is awake, alert, obeys commands, Oriented to person, place, time, situation, Appropriate for age. 10:00 Cardiovascular: Patient's skin is warm and dry. Respiratory: Airway is patent mb9 Respiratory effort is even, unlabored, Respiratory pattern is regular, symmetrical. GI: Abdomen is round non-distended, Bowel sounds present X 4 quads. Abd is soft and non tender X 4 quads. : No signs and/or symptoms were reported regarding the genitourinary system. EENT: No signs and/or symptoms were reported regarding the EENT system. Derm: Abscess located on posterior cervical area is dime sized. Musculoskeletal: Range of motion: intact in all extremities. Vital Signs: 08:45 BP 128 / 67; Pulse 104; Resp 16; Temp 99.2; Pulse Ox 100% on R/A; Weight 188.24 kg; iw Height 5 ft. 7 in. ; 11:11 BP 98 / 58; Pulse 86; Resp 18; Pulse Ox 98% on R/A; mb9 12:07 BP 125 / 69; mb9 08:45 Body Mass Index 65.00 (188.24 kg, 170.18 cm) ED Course: 08:42 Patient arrived in ED. mr 08:47 Compa Garza MD is Attending Physician. yogi 08:47 Triage completed. iw 08:47 Arm band placed on. iw 08:49 Dana Chaves RN is Primary Nurse. ll1 08:53 Patient has correct armband on for positive identification. Bed in low position. ll1 Provided Education on: ER procedures and process. 10:13 Sarai Malloy MD is Hospitalizing Provider. yogi 10:15 Patient taken to ultrasound. via stretcher. mb9 10:17 CBC with Diff Sent. mb9 10:17 Comprehensive Metabolic Panel Sent. mb9 10:17 Initial lab(s) drawn, by wv, sent to lab. Inserted saline lock: 22 gauge in left mb9 antecubital area, using aseptic technique. Blood collected. 10:18 Primary Nurse role handed off by Dana Chaves, ELIF mb9 10:18 Lora Whittington, ELIF is Primary Nurse. mb9 10:18 No provider procedures requiring assistance completed. mb9 10:25 US Extrmty Nonvasular Limited: right posterior neck In Process Unspecified. EDMS 11:14 Patient admitted, IV remains in place. mb9 Administered Medications: 10:05 Drug: NS 0.9% IV 500 ml IV at bolus once Route: IV; Rate: bolus; Site: left antecubital;mb9 11:10 Follow up: Response: No adverse reaction mb9 11:10 Follow up: Response: No adverse reaction; IV Status: Completed infusion mb9 10:08 Drug: Ondansetron IVP 4 mg IVP once; over 2 minutes Route: IVP; Site: left antecubital; mb9 11:10 Follow up: Response: No adverse reaction mb9 10:10 Drug: morphine IVP or IV 4 mg IVP once over 4 mins Route: IVP; Infused Over: 4 mins; mb9 Site: left antecubital; 11:10 Follow up: Response: No adverse reaction mb9 10:17 Drug: NS 0.9% IV 1000 ml IV at 125 ml/hr continuous Route: IV; Rate: 125 ml/hr; Site: mb9 left antecubital; 11:10 Follow up: Response: No adverse reaction; IV Status: Infusion continued upon admission mb9 10:43 Drug: ceFAZolin IVPB 2 grams IVPB once over 30 mins; (mix in 100 mL NS) Route: IVPB; mb9 Infused Over: 30 mins; Site: left antecubital; 11:15 Follow up: Response: No adverse reaction; IV Status: Completed infusion mb9 11:15 Drug: Clindamycin IVPB 900 mg IVPB once over 30 mins; (mix in 50 mL) Route: IVPB; mb9 Infused Over: 30 mins; Site: left antecubital; 11:53 Follow up: IV Status: Completed infusion mb9 Medication: 08:53 VIS not applicable for this client. ll1 Outcome: 10:14 Decision to Hospitalize by Provider. yogi 12:44 Admitted to Tele accompanied by tech, room 404, with chart, 9 12:44 Condition: stable 12:44 Instructed on the need for admit, 12:58 Patient left the ED. [id number] Signatures: Dispatcher [employer] EDMS Compa Garza MD MD cha Rivera, Mary, Reg Reg mr Prudence Whelan RN RN iw Lewis, Lynsay, RN RN 1 Lora Whittington RN RN mb9 Stef Gomes [email or web address]
--- NOTE | 2024-02-26 10:15 | EDPHYS ---
Physician Documentation [facility] Name: Russell Blake Jr Age: 23 yrs Sex: Male : 2000 Arrival Date: 02/26/2024 Time: 08:40 Bed 6 Private MD: ED Physician Compa Garza HPI: 02/25 09:56 This 23 yrs old Male presents to ER via Ambulatory with complaints of Neck yogi Problem. 09:56 The patient or guardian complains of decreased range of motion, pain, swelling, yogi tenderness. The symptoms are located on the posterior cervical area. Onset: The symptoms/episode began/occurred 3 day(s) ago. Context: The problem was sustained at an unknown location, The neck injury/problem resulted from from unknown cause. Associated signs and symptoms: The patient has no apparent associated signs or symptoms. The pain does not radiate. Modifying factors: The symptoms are alleviated by nothing. the symptoms are aggravated by movement, pressure. Severity of symptoms: At their worst the symptoms were moderate, in the emergency department the symptoms are unchanged. The patient has experienced a previous episode, last month. Historical: - Allergies: 08:47 No Known Allergies; iw - PMHx: 08:47 diabetes mellitus; iw - PSHx: 08:47 Appendectomy; iw - Immunization history:: Adult Immunizations not up to date. - Infectious Disease History:: Denies. - Social history:: Smoking status: Patient denies any tobacco usage or history of. - Family history:: not pertinent. ROS: 09:56 Constitutional: Negative for fever, chills, and weight loss, Eyes: Negative for injury, yogi pain, redness, and discharge, ENT: Negative for injury, pain, and discharge, Cardiovascular: Negative for chest pain, palpitations, and edema, Respiratory: Negative for shortness of breath, cough, wheezing, and pleuritic chest pain, Abdomen/GI: Negative for abdominal pain, nausea, vomiting, diarrhea, and constipation, Back: Negative for injury and pain, : Negative for injury, bleeding, discharge, and swelling, MS/Extremity: Negative for injury and deformity, Skin: Negative for injury, rash, and discoloration, Neuro: Negative for headache, weakness, numbness, tingling, and seizure, Psych: Negative for depression, anxiety, suicide ideation, homicidal ideation, and hallucinations, Allergy/Immunology: Negative for hives, rash, and allergies, Endocrine: Negative for neck swelling, polydipsia, polyuria, polyphagia, and marked weight changes, Hematologic/Lymphatic: Negative for swollen nodes, abnormal bleeding, and unusual bruising, 09:56 Neck: Positive for pain with movement, pain at rest, of the posterior cervical area, Exam: 09:56 Constitutional: This is a well developed, well nourished patient who is awake, alert, yogi and in no acute distress. Head/Face: Normocephalic, atraumatic. Eyes: Pupils equal round and reactive to light, extra-ocular motions intact. Lids and lashes normal. Conjunctiva and sclera are non-icteric and not injected. Cornea within normal limits. Periorbital areas with no swelling, redness, or edema. Neck: Trachea midline, no thyromegaly or masses palpated, and no cervical lymphadenopathy. Supple, full range of motion without nuchal rigidity, or vertebral point tenderness. No Meningismus. Chest/axilla: Normal chest wall appearance and motion. Nontender with no deformity. No lesions are appreciated. Cardiovascular: Regular rate and rhythm with a normal S1 and S2. No gallops, murmurs, or rubs. Normal PMI, no JVD. No pulse deficits. Respiratory: Lungs have equal breath sounds bilaterally, clear to auscultation and percussion. No rales, rhonchi or wheezes noted. No increased work of breathing, no retractions or nasal flaring. Abdomen/GI: Soft, non-tender, with normal bowel sounds. No distension or tympany. No guarding or rebound. No evidence of tenderness throughout. Back: No spinal tenderness. No costovertebral tenderness. Full range of motion. Skin: Warm, dry with normal turgor. Normal color with no rashes, no lesions, and no evidence of cellulitis. MS/ Extremity: Pulses equal, no cyanosis. Neurovascular intact. Full, normal range of motion. Neuro: Awake and alert, GCS 15, oriented to person, place, time, and situation. Cranial nerves II-XII grossly intact. Motor strength 5/5 in all extremities. Sensory grossly intact. Cerebellar exam normal. Normal gait. Psych: Awake, alert, with orientation to person, place and time. Behavior, mood, and affect are within normal limits. 09:56 Neck: External neck: cellulitis, mass, that is moderate-sized, ROM/movement: is normal, Lymph nodes: no appreciated lymphadenopathy, Vital Signs: 08:45 BP 128 / 67; Pulse 104; Resp 16; Temp 99.2; Pulse Ox 100% on R/A; Weight 188.24 kg; iw Height 5 ft. 7 in. ; 11:11 BP 98 / 58; Pulse 86; Resp 18; Pulse Ox 98% on R/A; mb9 12:07 BP 125 / 69; mb9 08:45 Body Mass Index 65.00 (188.24 kg, 170.18 cm) iw MDM: 08:47 Patient medically screened. [facility] 10:03 Differential diagnosis: cervical strain, Neck Contusion. Data reviewed: vital signs, [facility] nurses notes, lab test result(s), radiologic studies, ultrasound. Consideration of Admission/Observation Patient was admitted/placed on observation. Escalation of care including admission/observation considered. I considered the following discharge prescriptions or medication management in the emergency department Medications were administered in the Emergency Department. See MAR. Independent interpretation of the following test(s) in the Emergency Department Radiology Department Ultrasound: My interpretation is usg neck. Test considered but Not performed:. Historians other than the Patient: Spouse/Significant Other: recurrent abscess right posterior neck. Care significantly affected by the following chronic conditions: Diabetes, Obesity. 02/25 09:55 Order name: CBC with Diff; Complete Time: 12:13 [facility] 02/25 09:55 Order name: Comprehensive Metabolic Panel; Complete Time: 12:13 [facility] 02/25 11:54 Order name: Basic Metabolic Panel [facility] 02/25 11:54 Order name: Basic Metabolic Panel [facility] 02/25 11:54 Order name: CBC with Automated Diff [facility] 02/25 11:54 Order name: CBC with Automated Diff [facility] 02/25 11:54 Order name: Hemoglobin A1c [facility] 02/25 11:54 Order name: Hemoglobin A1c [facility] 02/25 11:54 Order name: Lipid Profile [facility] 02/25 11:54 Order name: Lipid Profile [facility] 02/25 11:54 Order name: Magnesium [facility] 02/25 11:54 Order name: Magnesium [facility] 02/25 09:55 Order name: US Extrmty Nonvasular Limited: right posterior neck; Complete Time: 12:13 [facility] 02/25 11:54 Order name: CONS Physician Consult [facility] 02/25 10:17 Order name: IV Saline Lock; Complete Time: 10:17 mb9 Administered Medications: 10:05 Drug: NS 0.9% IV 500 ml IV at bolus once Route: IV; Rate: bolus; Site: left antecubital;mb9 11:10 Follow up: Response: No adverse reaction mb9 11:10 Follow up: Response: No adverse reaction; IV Status: Completed infusion mb9 10:08 Drug: Ondansetron IVP 4 mg IVP once; over 2 minutes Route: IVP; Site: left antecubital; mb9 11:10 Follow up: Response: No adverse reaction mb9 10:10 Drug: morphine IVP or IV 4 mg IVP once over 4 mins Route: IVP; Infused Over: 4 mins; mb9 Site: left antecubital; 11:10 Follow up: Response: No adverse reaction mb9 10:17 Drug: NS 0.9% IV 1000 ml IV at 125 ml/hr continuous Route: IV; Rate: 125 ml/hr; Site: mb9 left antecubital; 11:10 Follow up: Response: No adverse reaction; IV Status: Infusion continued upon admission mb9 10:43 Drug: ceFAZolin IVPB 2 grams IVPB once over 30 mins; (mix in 100 mL NS) Route: IVPB; mb9 Infused Over: 30 mins; Site: left antecubital; 11:15 Follow up: Response: No adverse reaction; IV Status: Completed infusion mb9 11:15 Drug: Clindamycin IVPB 900 mg IVPB once over 30 mins; (mix in 50 mL) Route: IVPB; mb9 Infused Over: 30 mins; Site: left antecubital; 11:53 Follow up: IV Status: Completed infusion mb9 Disposition Summary: 02/26/24 10:14 Hospitalization Ordered Notes: Hospitalization Status: Observation yogi Provider: Sarai Malloy cha [facility] yogi Condition: Stable yogi Problem: new yogi Symptoms: have improved yogi Bed/Room Type: Standard yogi Room Assignment: 404(02/26/24 11:58) ja1 Diagnosis - Cutaneous abscess of neck yogi - Obesity, unspecified yogi - Type 2 diabetes mellitus with hyperglycemia yogi - Elevated white blood cell count yogi Forms: - Medication Reconciliation Form yogi - SBAR form yogi - Leadership Thank You Letter yogi Signatures: Dispatcher [employer] Compa Hammond MD MD cha Williams, Irene, RN RN iw Aguilar, Jose, RN RN ja1 Lroa Whittington RN RN mb9 Corrections: (The following items were deleted from the chart) 11:58 10:14 yogi moreno
[2024-02-26 10:49] LABS: Absolute Basophils 0.1 K/uL (0-0.5); Absolute Eosinophils 0.2 K/uL (0-0.5); Absolute Lymphocytes (CBC) 2.6 K/uL (0.7-4.9); Absolute Monocytes 0.7 K/uL (0.1-1.3); Absolute Neutrophil 11.2 K/uL (1.8-8.0); Basophils % 0.5 % (0-1.3); Hematocrit 41.5 % (39.6-49.0); Hemoglobin 13.8 g/dL (13.6-17.9); Lymphocytes % 17.6 % (15.3-44.8); MCH 27.2 pg (27.0-35.0); MCHC 33.2 g/dL (32.0-36.0); MCV 81.8 fL (80-100); MPV 8.5 fL (7.6-11.3); Monocytes % 4.6 % (3.3-12.3); Neutrophils % 76.3 % (41.7-73.7); Nucleated Red Blood Cells % 0.1 % (0-0); Platelets 344 thou/uL (152-406); RBC Red Blood Cell Count 5.08 M/uL (4.33-5.43); Red Cell Distribution Width 14.9 % (12.1-15.2)
--- NOTE | 2024-02-26 10:53 | RAD REPORT ---
EXAM DESCRIPTION: US - Extremity Nonvascular Limited - 02/26/2024 10:23 am CLINICAL HISTORY: Pain;Swelling COMPARISON: Extremity Nonvascular Limited dated 09/12/2023; Extrem Venous W Compress Og dated 2023 FINDINGS: Right posterior neck hypoechoic mass again identified measuring 2.5 x 1.5 x 3.4 cm. This i s not appear to have any significant vascular flow within it. This could represent complex fluid or n ecrosis. Assuming this is the same structure that was identified on the 09/12/2023 exam, it measures grossly similar in size taking into account some variation in measurement technique on the prior exam . IMPRESSION: Right posterior neck mass probably represent a suppurative lymph node given the patient' s age. Assuming this is the same structure that underwent ultrasound in 09/12/2023, consider surgical consultation for surgical removal and definitive characterization.
[2024-02-26 11:08] LABS: Albumin 3.5 g/dL (3.4-5.0); Albumin/Globulin Ratio 0.8 (1.1-1.8); Bilirubin Total 0.8 mg/dL (0.2-1.0); Globulin 4.4 g/dL (2.3-3.5); Protein, Total 7.9 g/dL (6.4-8.2)
[2024-02-26] MEDS ORDERED: MORPHINE 4 MG/ML SYR IV PRN (11:47)
--- NOTE | 2024-02-26 11:58 | P.HP ---
Certification for Inpatient Patient admitted to: Inpatient With expected LOS: >2 Midnights Patient will require the following post-hospital care: None Practitioner: I am a practitioner with admitting privileges, knowledge of patient current condition, hospital course, and medical plan of care. Services: Services provided to patient in accordance with Admission requirements found in Title 42 Section 412.3 of the Code of Federal Regulations <Beata Hanalyson Augustin - Last Filed: 02/26/24 11:53> Patient History Date of Service: 02/26/24 Reason for admission: abscess to right posterior neck, DM, morbid obesity History of Present Illness: Mr. Russell Blake is a 23-year-old male with a past medical history of diabetes mellitus. He supposed to take metformin but has not in over a year secondary to financial problems. He is morbidly obese. A large area of acanthosis nigracans to his posterior and lateral neck is present with thickened leathery skin. September 08, 2023 he presented to the emergency department with a abscess to the right posterior neck, an I&D was performed and he was sent home on antibiotics. Over the past week, this area has again become irritated. Over the last 2 days, he has been unable to sleep secondary to pain. On evaluation in the emergency department, he was found to have an abscess to this right posterior neck area. Dr. Sibley was consulted from the emergency department, IV antibiotics have been started. We will admit Mr. Blake with n.p.o. status post midnight for operative I&D tomorrow. Home medications list reviewed: Yes - Past Medical/Surgical History Has patient received pneumonia vaccine in the past: No Diabetic: No -: DM -: Appendectomy -: I&D of right posterior neck Psychosocial/ Personal History: Lives at home with his , works as a marketing and communications officer - Family History Mother -: Diabetes - Social History Smoking therapy provided: Yes (vapes) Alcohol use: No CD- Drugs: No Caffeine use: No Place of Residence: Home <Marjan Han - Last Filed: 02/26/24 11:53> Date of Service: 02/26/24 <Sarai Malloy - Last Filed: 02/26/24 21:52> Allergies No Known Allergies Allergy (Unverified 09/12/23 21:30) Home Medications: NK [No Home Meds] 02/26/24 Review of Systems 10-point ROS is otherwise unremarkable Integumentary: As per HPI <Marjan Han - Last Filed: 02/26/24 11:53> Physical Examination - Physical Exam General: Alert, In no apparent distress, Obese HEENT: Atraumatic, Normocephalic Neck: No Thyromegaly, Other (acanthosis nigricans, right lateral/posterior neck with indurated, tender 4x4cm area ) Respiratory: Crackles/rales Cardiovascular: Normal pulses, Regular rate/rhythm Capillary refill: <2 Seconds Gastrointestinal: Soft and benign Musculoskeletal: No swelling, No contractures Integumentary: Other (as noted) Neurological: Normal speech, Normal tone Lymphatics: No axilla or inguinal lymphadenopathy External genitalia: Deferred Rectal: Deferred - Studies Laboratory Data (last 24 hrs) 02/26/24 02/26/24 10:09 10:09 WBC 14.70 H Hgb 13.8 Hct 41.5 Plt Count 344 Sodium 133 L Potassium 4.0 BUN 12 Creatinine 0.84 Glucose 180 H Total Bilirubin 0.8 AST 13 L ALT 28 Alkaline Phosphatase 80 <Marjan Han - Last Filed: 02/26/24 11:53> - Studies Laboratory Data (last 24 hrs) 02/26/24 02/26/24 10:09 10:09 WBC 14.70 H Hgb 13.8 Hct 41.5 Plt Count 344 Sodium 133 L Potassium 4.0 BUN 12 Creatinine 0.84 Glucose 180 H Total Bilirubin 0.8 AST 13 L ALT 28 Alkaline Phosphatase 80 <Sarai Mallyo - Last Filed: 02/26/24 21:52> Assessment and Plan - Plan Cutaneous abscess to right posterior neck: Consult Dr. Sibley - rob from ED Continue Cefazolin and Clindamycin started in ED Morphine prn NPO po MN Diabetes Mellitus: FSBS with SSI monitor and trend HgbA1c Medication noncompliance: Encourage maintenance of weight Blood sugar log Compliance with medication regimen DVT prophylaxis: SCDs. Hold lovenox 2nd to surgical procedure tomorrow Code Status: Full Discharge Plan: Home Plan to discharge in: 48 Hours - Advance Directives Does patient have a Living Will: No Does patient have a Durable POA for Healthcare: No - Code Status/Comfort Care Code Status Assessed: Yes (Full) <Marjan Han Charli - Last Filed: 02/26/24 11:53> - Plan Pt seen and examined. I agree withe the note by the INSPECTOR CHIEF. Pt is a 23 yo male with past medical history of DM II who presents with right neck pain. Of note, pt has not been compliant with metformin at home due to financial problems. Pt has a large area of acanthosis nigracan on the posterior part of his neck. On September 08, 2023, He presented with a abscess to the right posterior neck. He was sent home with po abx after I&D. Pt reports that he started having pain on his right neck about a week ago. It progressively worsened over the past 2 days and he came to the ER for evaluation. On admission, lab studies show wbc 14.7, Hgb 13, K 4, NA 133, Cr 0.84 and glucose 180. ER physician consulted GEn surgeon and gave iv abx. At bedside, pt is in NAD> A/P: Right neck abscess: Will continue iv clindamycin, cefazolin and prn pain med. Gen surgery will take him to the OR. Will f/u blood and wound cxs. DM II; Continue accuchek, SSI and ADA diet Hyponatremia: Na is 133. Will continue NS IVF. Trend Na level. Non-compliance; Pt was encouraged to be compliant with his home meds. Morbid Obesity: Pt was advised to lose weight. DVT ppx: lovenox after surgery Code: full <Sarai Malloy - Last Filed: 02/26/24 21:52>
[2024-02-26] MEDS: NA CHLORIDE 0.9% 1,000 ML IV SCH (13:32)
[2024-02-26] MEDS ORDERED: PNEUMOCOCCAL VACCINE 0.5 ML IMVAC ONE (14:00)
[2024-02-26] MEDS ORDERED: INFLUENZA VACCINE (for 6+ mo) 0.5 ML DOSE IMVAC ONE (14:00)
[2024-02-26 14:01] VITALS: BMI 65.0
[2024-02-26] MEDS ORDERED: FENTANYL CITR 100 MCG/2 ML ONE (15:09)
[2024-02-26] MEDS ORDERED: MIDAZOLAM HCL 2 MG/2 ML INJ ONE (15:09)
[2024-02-26] MEDS ORDERED: propofoL 200 MG/20 ML VIAL IV ONE (15:09)
[2024-02-26] MEDS ORDERED: LIDOCAINE 2% MPF 5 ML VIAL ONE (15:09)
[2024-02-26] MEDS ORDERED: EPHEDRINE SULF 50 MG/ML VIAL ONE (15:33)
[2024-02-26] MEDS: CEFAZOLIN SODIUM 2 GM/VIAL ONE (15:35)
[2024-02-26] MEDS ORDERED: dexAMETHasone 4 MG/ML VIAL ONE (15:38)
[2024-02-26] MEDS: BUPIVACAINE 0.5% PF 10 ML VIAL ONE (15:53)
[2024-02-26] MEDS: INSULIN REGULAR (HUMAN) 100 UNIT/ML SQ SCH (16:30)
--- NOTE | 2024-02-26 16:42 | PREOPCON ---
Date of Consultation: 02/26/2024 Reason For Consultation: Pain right posterior neck. History Of Present Illness: Patient is a 23-year-old gentleman who comes into the emergency room wit h 1-week history of increased swelling and pain in the right posterior neck. This increased in sever ity over the last 3 days, has continued to get worse and he has had no fever or chills and no drainag e. However, he had similar issue last August in which a small I and D was done to relieve the press ure, but the cyst over there has remained. The patient denies any sore throat, runny nose, cough, he adaches, or dizziness. No chest pain. Review of Systems: Otherwise unremarkable. Past Medical History: Type 2 diabetes. Past Surgical History: Laparoscopic appendectomy. Allergies: NO ALLERGIES. Social History: The patient vapes. Denies drinking alcohol. Family History: Noncontributory. Physical Examination: Vital Signs: Stable. The patient's temperature is 99.2. His weight is 188.24 kg. His height is 5 feet 7 inches. BMI is 65.00. General: He is awake, alert, oriented x3. Head and Neck: Cranial nerves 2 through 12 are grossly within normal limits. No neck masses anterio rly. On the right posterior neck, there is approximately a 5 x 3 cm area of induration with tenderne ss. Deep in the subcutaneous tissue, there is some warmth to it. There is no discharge and there is slight erythema. Chest: Clear. Heart: S1, S2. Abdomen: Soft. Extremities: Neurovascularly intact. Neuro: Nonfocal. Diagnostic Data: The patient had an ultrasound done of the neck, which shows a 2.5 x 1.5 x 3.4 cm hy perechoic mass, could represent complex fluid or necrosis. It was similar in size back in August of last year. The patient's white count is 14.7 with a left shift. Chemistry shows a glucose of 180, otherwise essentially unremarkable. Assessment: A 23-year-old gentleman with morbid obesity, type 2 diabetes, and an infected cyst compl ex in nature in the right posterior neck. Plan: Admit n.p.o., IV fluid, IV antibiotic, in to the OR for excision of this infected cyst. The p atient understands risks, benefits, and alternatives and agrees to procedure. It was explained to e patient that if the entire cyst cannot be removed, then a secondary closure or secondary wound heal ing process would take place with wet-to-dry normal saline dressing changes. The patient understands risks, benefits, alternatives, and agrees to procedure. MATI/NAHEED Voice ID: [id number] Report ID: [id number]
--- NOTE | 2024-02-26 16:49 | P.OP ---
Date of Service: 02/26/24 Preop diagnosis: Infected cyst right posterior neck Postop diagnosis: Same Procedure performed: Wide excision infected cyst right posterior neck 6 x 3 cm to deep subcutaneous tissue Surgeon: Thomas Sibley MD Marksmanship Instructor: None Estimated blood loss: Minimal Specimen: Pus and infected cyst Findings: As above Anesthesia: General Complications: None Drains: None Fluids and blood products: Nonapplicable Disposition: Recovery room Operative note: Patient brought to the OR placed in supine position. General anesthesia began. Patient placed in the left lateral position. Marcaine 0.5% infiltrated locally for postop pain control. Then, a 6 x 3 cm incision made around this infected cyst. Subcutaneous tissue divided. Pus encountered. Cultures done. Entire cyst wall and contents excised down through the deep subcutaneous tissue and sent to pathology as specimen. Wound irrigated and bleeding controlled cautery. Wet-to-dry normal saline dressing change applied. Patient awakened and taken to recovery room in good general condition. CC:
[2024-02-26] MEDS: CEFAZOLIN 1 GM in NA CHLORIDE 0.9% 50 ML IVPB SCH (18:02)
[2024-02-26] MEDS: CLINDAMYCIN 900MG/D5W 900 MG/50 ML IVPB IV SCH (18:23)
[2024-02-27 07:28] LABS: Absolute Basophils 0.1 K/uL (0-0.5); Absolute Lymphocytes (CBC) 1.9 K/uL (0.7-4.9); Absolute Monocytes 0.7 K/uL (0.1-1.3); Absolute Neutrophil 12.5 K/uL (1.8-8.0); Basophils % 0.8 % (0-1.3); Eosinophils % 0.1 % (0-4.4); Hematocrit 42.3 % (39.6-49.0); Hemoglobin 13.8 g/dL (13.6-17.9); Lymphocytes % 12.3 % (15.3-44.8); MCH 26.9 pg (27.0-35.0); MCHC 32.7 g/dL (32.0-36.0); MCV 82.3 fL (80-100); MPV 8.4 fL (7.6-11.3); Monocytes % 4.6 % (3.3-12.3); Neutrophils % 82.2 % (41.7-73.7); Platelets 334 thou/uL (152-406); RBC Red Blood Cell Count 5.14 M/uL (4.33-5.43); Red Cell Distribution Width 14.7 % (12.1-15.2)
[2024-02-27 07:47] LABS: Anion Gap 6.9 mEq/L (5.0-15.0); Magnesium 2.1 mg/dL (1.6-2.4); Potassium 3.9 mEq/L (3.5-5.1)
[2024-02-27] MEDS: POTASSIUM CL SA 10 MEQ TAB PO ONE (11:56)
--- NOTE | 2024-02-27 12:24 | P.PN ---
Subjective Date of Service: 02/27/24 Chief Complaint: abscess to right posterior neck, DM, morbid obesity Pt is resting comfortably inb ed. S/o I&D by the Gen surgeon. He is feeling better. Urine cx is growing E. coli. Continue Augmentin. Waiting for clearance by the the Gen surgeon. No other complaints. Review of Systems General: Unremarkable Eyes: Unremarkable ENT: Unremarkable Respiratory: Unremarkable Cardiovascular: Unremarkable Gastrointestinal: Unremarkable Genitourinary: Unremarkable Musculoskeletal: Unremarkable Integumentary: Lesions (right posterior neck abscess) Neurological: Unremarkable Lymphatics: Unremarkable Physical Examination - Vital Signs Temperature: 97.3 F Blood Pressure: 149/71 Pulse: 76 Respirations: 14 Pulse Ox (%): 97 - Physical Exam General: Alert, In no apparent distress, Oriented x3 HEENT: Atraumatic, Normocephalic, PERRLA Neck: Supple, 2+ carotid pulse no bruit Respiratory: Clear to auscultation bilaterally, Normal air movement, Diminished Cardiovascular: No edema, Normal pulses, Regular rate/rhythm, Normal S1 S2 Capillary refill: <2 Seconds Gastrointestinal: Normal bowel sounds, Soft and benign, Non-distended Musculoskeletal: No clubbing, No swelling Integumentary: No rashes, No breakdown Neurological: Normal gait, Normal speech, Normal strength at 5/5 x4 extr, Normal tone, Sensation intact Lymphatics: No axilla or inguinal lymphadenopathy Assessment And Plan - Plan Right neck abscess: Will continue Augmentin and prn pain med. Off iv clindamycin and cefazolin. POD #1. S/p I&D. Will f/u blood and wound cxs. UTI: Continue augmentin. Urine cx is growing E. coli. DM II: Continue accuchek, SSI and ADA diet. A1c is 5.9. Complicated by morbid obesity. Hyponatremia: Na is 137 <- 133. Will continue NS IVF. Non-compliance; Pt was encouraged to be compliant with his home meds. Morbid Obesity: Pt was advised to lose weight. DVT ppx: lovenox Code: full Dispo: Will dc once ccleared by Gen surgery.
--- NOTE | 2024-02-27 14:46 | PN ---
Date of Progress Note: 02/27/2024 The patient is awake, alert. No complaint. Vital signs stable, afebrile. Laboratory data reviewed. White count is 15.2 with a left shift. Cultures are pending, so far no gr owth. Dressing is clean, dry, intact. Assessment: Status post excisional debridement of infected cyst on the right posterior neck. Recommendation: Continue IV antibiotics. Likely discharge in a.m. Check cultures and adjust antibi otics accordingly. Wound care as ordered. /MODL Voice ID: [id number] Report ID: [id number]
[2024-02-27] MEDS: HYDROCODONE/APAP 7.5/325 MG TAB PO PRN (21:32)
[2024-02-28 05:22] LABS: Absolute Basophils 0.1 K/uL (0-0.5); Absolute Eosinophils 0.2 K/uL (0-0.5); Absolute Lymphocytes (CBC) 4.5 K/uL (0.7-4.9); Absolute Monocytes 0.8 K/uL (0.1-1.3); Absolute Neutrophil 6.8 K/uL (1.8-8.0); Basophils % 0.4 % (0-1.3); Eosinophils % 1.8 % (0-4.4); Hematocrit 38.6 % (39.6-49.0); Hemoglobin 12.8 g/dL (13.6-17.9); Lymphocytes % 36.4 % (15.3-44.8); MCH 27.3 pg (27.0-35.0); MCHC 33.2 g/dL (32.0-36.0); MCV 82.4 fL (80-100); MPV 8.5 fL (7.6-11.3); Monocytes % 6.4 % (3.3-12.3); Nucleated Red Blood Cells % 0.1 % (0-0); Platelets 324 thou/uL (152-406); RBC Red Blood Cell Count 4.69 M/uL (4.33-5.43); Red Cell Distribution Width 14.9 % (12.1-15.2)
[2024-02-28 06:35] VITALS: TEMP 97.6
--- NOTE | 2024-02-28 06:51 | P.DS ---
Admission Date: 02/26/24 Discharge Date: 02/28/24 Reason for Admission: abscess to right posterior neck, DM, morbid obesity Consultations: Dr. Sibley Procedures: Abcessed cyst incision and drainage in OR Brief History of Present Illness: Mr. Russell Blake is a 23-year-old male with a past medical history of diabetes mellitus. He's supposed to take metformin but has not in over a year secondary to financial problems. He is morbidly obese. A large area of acanthosis nigracans to his posterior and lateral neck is present with thickened leathery skin. September 08, 2023 he presented to the emergency department with a abscess to the right posterior neck, an I&D was performed, and he was sent home on antibiotics. Over the past week, this area has again become irritated. Over the last 2 days, he has been unable to sleep secondary to pain. On evaluation in the emergency department, he was found to have an abscess to this right posterior neck area. Dr. Sibley was consulted from the emergency department, IV antibiotics have been started. We will admit Mr. Blake with n.p.o. status post midnight for operative I&D tomorrow. Hospital Course: Mr. Blake was taken to the OR on 02/26/2024, a 6 x 3 cm incision was made to remove an infected cyst with the entire cyst wall, per Dr. Sibley. Cultures remain pending. Mr. Blake had relief of pain, his white count is trending down, fingerstick blood glucose more in control, and we will transition him to p.o. antibiotics today. He will be discharged on clindamycin, mupirocin, metformin, and tramadol. He will need to complete wound care with soap and water and then wet-to-dry dressings. Follow-up with Dr. Sibley in 1 week. Please follow up with [facility] for diabetic education. <Marjan Han - Last Filed: 02/28/24 09:29> Admission Date: 02/26/24 Discharge Date: 02/28/24 Hospital Course: Pt seen and examined. I agree with the note by the TITLE ATTORNEY. Will dc pt with clindamycin, metformin and prn pain med. Pt was advised to lose weight <Sarai Malloy - Last Filed: 02/28/24 21:45> Disposition: ROUTINE DISCHARGE Discharge Condition: GOOD Vital Signs/Physical Exam: Temp Pulse Resp BP Pulse Ox 97.6 F 70 18 133/60 98 02/28/24 04:00 02/28/24 04:00 02/28/24 04:00 02/28/24 04:00 02/28/24 04:00 General: Alert, In no apparent distress HEENT: Atraumatic, Normocephalic Neck: Supple Respiratory: Clear to auscultation bilaterally, Normal air movement Cardiovascular: Normal pulses Capillary refill: <2 Seconds Gastrointestinal: Soft and benign Musculoskeletal: No clubbing Integumentary: No rashes, Other (bandage intact at right neck, no discharge) Neurological: Normal speech, Normal tone Lymphatics: No axilla or inguinal lymphadenopathy External genitalia: Deferred Rectal: Deferred Laboratory Data at Discharge: WBC 12.30 thou/uL (4.3-10.9) H 02/28/24 04:37 Hgb 12.8 g/dL (13.6-17.9) L 02/28/24 04:37 Hct 38.6 % (39.6-49.0) L 02/28/24 04:37 Plt Count 324 thou/uL (152-406) 02/28/24 04:37 Sodium 135 mEq/L (136-145) L 02/28/24 04:21 Potassium 4.0 mEq/L (3.5-5.1) 02/28/24 04:21 BUN 16 mg/dL (7-18) 02/28/24 04:21 Creatinine 0.73 mg/dL (0.70-1.30) 02/28/24 04:21 Glucose 110 mg/dL (74-106) H 02/28/24 04:21 Magnesium 2.1 mg/dL (1.6-2.4) 02/27/24 06:58 Total Bilirubin 0.8 mg/dL (0.2-1.0) 02/26/24 10:09 AST 13 U/L (15-37) L 02/26/24 10:09 ALT 28 U/L (16-61) 02/26/24 10:09 Alkaline Phosphatase 80 U/L (45-117) 02/26/24 10:09 Triglycerides 56 mg/dL (<150) 02/27/24 06:58 Cholesterol 165 mg/dL (<200) 02/27/24 06:58 HDL Cholesterol 45 mg/dL (40-60) 02/27/24 06:58 Cholesterol/HDL Ratio 3.67 02/27/24 06:58 <Han,Marjan Charli - Last Filed: 02/28/24 09:29> Vital Signs/Physical Exam: Temp Pulse Resp BP Pulse Ox 97.6 F 70 17 130/60 98 02/28/24 08:00 02/28/24 08:00 02/28/24 08:00 02/28/24 08:00 02/28/24 08:00 Laboratory Data at Discharge: WBC 12.30 thou/uL (4.3-10.9) H 02/28/24 04:37 Hgb 12.8 g/dL (13.6-17.9) L 02/28/24 04:37 Hct 38.6 % (39.6-49.0) L 02/28/24 04:37 Plt Count 324 thou/uL (152-406) 02/28/24 04:37 Sodium 135 mEq/L (136-145) L 02/28/24 04:21 Potassium 4.0 mEq/L (3.5-5.1) 02/28/24 04:21 BUN 16 mg/dL (7-18) 02/28/24 04:21 Creatinine 0.73 mg/dL (0.70-1.30) 02/28/24 04:21 Glucose 110 mg/dL (74-106) H 02/28/24 04:21 Magnesium 2.1 mg/dL (1.6-2.4) 02/27/24 06:58 Total Bilirubin 0.8 mg/dL (0.2-1.0) 02/26/24 10:09 AST 13 U/L (15-37) L 02/26/24 10:09 ALT 28 U/L (16-61) 02/26/24 10:09 Alkaline Phosphatase 80 U/L (45-117) 02/26/24 10:09 Triglycerides 56 mg/dL (<150) 02/27/24 06:58 Cholesterol 165 mg/dL (<200) 02/27/24 06:58 HDL Cholesterol 45 mg/dL (40-60) 02/27/24 06:58 Cholesterol/HDL Ratio 3.67 02/27/24 06:58 <Sarai Malloy - Last Filed: 02/28/24 21:45> Diet: ADA Activity: Ad ignacio <Marjan Han - Last Filed: 02/28/24 09:29> <Sarai Malloy - Last Filed: 02/28/24 21:45> Home Medications: Clindamycin HCl 300 mg PO TID 10 Days #60 tab 02/28/24 Metformin HCl [Glucophage*] 500 mg PO DAILY WITH BREAKFAST 60 Days #60 tab 02/28/24 Mupirocin Oint [Bactroban 2% Ointment*] 22 appl TP BID 15 Days #1 ea 02/28/24 traMADol HCL [Ultram*] 50 mg PO QID #12 tab 02/28/24 New Medications: Mupirocin Oint [Bactroban 2% Ointment*] 22 appl TP BID 15 Days #1 ea Clindamycin HCl 300 mg PO TID 10 Days #60 tab Metformin HCl [Glucophage*] 500 mg PO DAILY WITH BREAKFAST 60 Days #60 tab traMADol HCL [Ultram*] 50 mg PO QID #12 tab Physician Discharge Instructions: Okay to DC IV and DC home Follow-up with primary care provider in 1 to 2 weeks Follow-up with Dr. Sibley in 1 week Please call the inpatient unit for any questions or concerns regarding hospital stay Return to the ER for worsening symptoms Please follow up with [facility] for diabetic education. Mr. Blake was taken to the OR on 02/26/2024, a 6 x 3 cm incision was made to remove an infected cyst with the entire cyst wall, per Dr. Sibley. Cultures remain pending. Mr. Blake had relief of pain, his white count is trending down, fingerstick blood glucose more in control, and we will transition him to p.o. antibiotics today. He will be discharged on clindamycin, mupirocin, metformin, and tramadol. He will need to complete wound care with soap and water and then wet-to-dry dressings. Follow-up with Dr. Sibley in 1 week. Wet-to-dry normal saline dressing changes daily Follow-up in the wound healing center in my clinic, 1 to 2 weeks Incentive spirometry as instructed Followup: NONE,NONE [Primary Care Provider] - Thomas Sibley MD [ACTIVE - CAN ADMIT] - 1-2 Weeks (Follow-up in the wound healing center in my clinic)
--- NOTE | 2024-02-28 09:38 | PN ---
Date of Progress Note: 02/28/2024 Subjective: The patient is awake, alert. No complaint. Objective: Vital Signs: Stable. Afebrile. Skin: Dressing is clean, dry, intact. Laboratory Data: Cultures reviewed. Assessment: Status post excision of infected cyst. Recommendations: The patient can be discharged home on clindamycin and pain medicine per the hospita list. Dressing orders given to the patient to be wet-to-dry normal saline daily and follow up in the [facility]aling [facility] in 1-2 weeks. /MODL Voice ID: [id number] Report ID: [id number]
[2024-02-28 11:00] VITALS: O2SAT 98
[2024-02-28 11:33] VITALS: BP 130/60
== END 2024-02-28 12:25 | disposition home or self-care (01) | DRG 571 ==
LOC: ER 08:40 → ERHOLD 11:47 → 4TH 12:44
PROVIDERS: ADMIT Hospitalist; ATTEND Hospitalist
PROC: 0JB40ZZ Excision of Right Neck Subcutaneous Tissue and Fascia, Open Approach (ICD-10-PCS; principal; 2024-02-26 15:00)
DX: L02.11 Cutaneous abscess of neck (principal); E87.1 Hypo-osmolality and hyponatremia; Z68.44 Body mass index [BMI] 60.0-69.9, adult; N39.0 Urinary tract infection, site not specified; E66.01 Morbid (severe) obesity due to excess calories; E11.65 Type 2 diabetes mellitus with hyperglycemia; D72.829 Elevated white blood cell count, unspecified; T38.3X6A Underdosing of insulin and oral hypoglycemic [antidiabetic] drugs, initial encounter; F17.290 Nicotine dependence, other tobacco product, uncomplicated; B96.20 Unspecified Escherichia coli [E. coli] as the cause of diseases classified elsewhere; Z79.84 Long term (current) use of oral hypoglycemic drugs; Z90.49 Acquired absence of other specified parts of digestive tract; Z91.141 Patient's other noncompliance with medication regimen due to financial hardship; Z91.120 Patient's intentional underdosing of medication regimen due to financial hardship; Z79.899 Other long term (current) drug therapy
CPT/HCPCS: 36415; 76882; 80048; 80053; 80061; 82947; 83036; 83735; 85025; 87070; 87075; 87205; 88304; 96361; 96365; 96367; 96375; 99285; J0690; J1100; J2001; J2250; J2405; J2704; J3010; J7030; J7040